=== PATIENT | female | born 1960 | race Caucasian/White ===

== ENCOUNTER 2018-07-01 15:54 | Emergency (ER) | payer OTHER ==
[~2018-07-01] VITALS: Ht 162.6 cm; Wt 68.0 kg
[2018-07-01] MEDS ORDERED: VENLAFAXINE HCL75 M1 PO (16:07)
[2018-07-01] MEDS ORDERED: SUMATRIPTAN SUC50 MG PO (16:07)
[2018-07-01] MEDS ORDERED: AMITRIPTYLINE H25 MG PO (16:08)
[2018-07-01] MEDS ORDERED: NORCO 5-325 TA1 EACH PO (16:56)
== END 2018-07-01 17:23 | disposition home or self-care (01) ==
LOC: ED 15:54
PROC: 2W3CX1Z Immobilization of Right Lower Arm using Splint (ICD-10-PCS; principal; 2018-07-01)
DX: S52.614A Nondisplaced fracture of right ulna styloid process, initial encounter for closed fracture (principal); S52.501A Unspecified fracture of the lower end of right radius, initial encounter for closed fracture; V80.010A Animal-rider injured by fall from or being thrown from horse in noncollision accident, initial encounter; Z79.899 Other long term (current) drug therapy
CPT/HCPCS: 29125; 73110; 99283-25

== ENCOUNTER 2021-01-30 06:30 | Day surgery (SDC) | payer OTHER ==
[~2021-01-30] VITALS: Ht 162.6 cm; Wt 63.5 kg
[~2021-01-30 06:30] MED LIST: AMITRIPTYLINE H25 MG PO; MULTI-VITAMIN1 EACH PO; NAPROXEN500 MG PO; NORCO 5-325 TA1 EACH PO; PETADOLEX50 MG PO; SUMATRIPTAN SUC50 MG PO; VENLAFAXINE HCL75 M1 PO; VITAMIN D3 COM1 EACH PO
--- NOTE | 2021-01-30 08:17 | NUR ---
01/30/21 0817 Lotus Maya 0815-PT TO PACU IN LL POSITION. EYES OPEN. PT IS DROWSY BUT ASKING QUESTIONS ABOUT PROCEDURE APPROPRIATELY. BREATHING EASY AND UNLABORED. SPO2 >95% ON 2 L O2 VIA NC. PT DENIES PAIN AND NAUSEA. PT ENCOURAGED TO PASS GAS AND ORIENTED TO PLAN OF CARE.
--- NOTE | 2021-02-01 11:41 | OR ---
[facility] [address], [place] [address] Signed DATE OF OPERATION: 01/30/2021 SURGEON: Tammy Zarco MD PREOPERATIVE DIAGNOSES: 1. Surveillance. 2. Family history of colon cancer, paternal uncle. POSTOPERATIVE DIAGNOSES: Normal colon to cecum. PROCEDURE: Total colonoscopy to cecum. ANESTHESIA: Intravenous sedation, fentanyl 100 mcg, Versed 6 mg. INDICATION: This 60-year-old white woman is a patient of Dr. Parker and known to me from the past having undergone colonoscopy in 2010, which was normal. She has no symptoms of bleeding, diarrhea or constipation, but does have family history of colon cancer in a paternal great uncle. She is admitted at this time to undergo colonoscopy for surveillance. She understands the risks of bleeding, infection, and perforation. FINDINGS: The prep was adequate. Complete colonoscopy was undertaken to the cecum. The ileocecal valve and appendiceal orifice were normal. There was no evidence of polyps, diverticular formation, colitis, or cancer. DESCRIPTION OF PROCEDURE: The patient was brought to the endoscopy suite and placed in lateral decubitus position, given intravenous sedation to the point of slurred speech and nystagmus. Digital rectal examination was normal. An Olympus video colonoscope was passed in the rectum and manipulated throughout the colon ultimately intubating the cecum itself. The ileocecal valve and appendiceal orifice were normal and the scope was withdrawn from that point and examination throughout showed no sign of abnormality specifically no polyps, diverticular formation, colitis, or cancer. Retroflex view was normal as well. The scope was removed. The patient was taken to the recovery room in good condition. Electronically Signed By: TAMMY ZARCO MD 02/01/21 1141 PATIENT NAME: SHERI VILLEGAS OPERATIVE REPORT DATE OF : 60 REPORT #: [id number] PHYSICIAN: TAMMY ZARCO MD PCP: LEEANN PARKER MD REPORT IS CONFIDENTIAL AND NOT TO BE RELEASED WITHOUT AUTHORIZATION [facility] [address] [place] [address] [place], [place] [address] Signed CONCLUDING DIAGNOSIS: Normal colon to cecum. PLAN: Recommend a repeat colonoscopy in 10 years sooner if clinically indicated. She will return to the ongoing care of Dr. Parker. Tammy Zarco MD JM/MODL /[id number] cc: Leeann Parker MD Copies: LEEANN PARKER MD ~ Electronically Signed By: TAMMY ZARCO MD 02/01/21 1141 PATIENT NAME: SHERI VILLEGAS JASMIN OPERATIVE REPORT DATE OF : 60 REPORT #: [id number] PHYSICIAN: TAMMY ZARCO MD PCP: LEEANN PARKER MD REPORT IS CONFIDENTIAL AND NOT TO BE RELEASED WITHOUT AUTHORIZATION
== END 2021-01-30 08:51 | disposition home or self-care (01) ==
LOC: DS 06:30 → OPS 06:30 → DS 06:45 → OPS 06:45
PROVIDERS: ATTEND Surgery
PROC: 0DJD8ZZ Inspection of Lower Intestinal Tract, Via Natural or Artificial Opening Endoscopic (ICD-10-PCS; principal; 2021-01-30 06:45)
DX: Z12.11 Encounter for screening for malignant neoplasm of colon (principal); Z80.0 Family history of malignant neoplasm of digestive organs; Z90.711 Acquired absence of uterus with remaining cervical stump
CPT/HCPCS: 99153; G0500; J2250; J3010; J7121

== ENCOUNTER 2021-10-31 06:00 | Day surgery (SDC) | payer OTHER ==
[~2021-10-31] VITALS: Ht 162.6 cm; Wt 63.2 kg
[~2021-10-31 06:00] MED LIST changes: +NAPROSYN500 MG PO; +VITAMIN D310 MC4 PO
[2021-10-31] MEDS ORDERED: OXYCODON-ACETA1 EAC2 PO (08:30)
[2021-10-31] MEDS ORDERED: ACETAMINOPHEN500 MG PO (08:30)
[2021-10-31] MEDS ORDERED: IBUPROFEN600 MG PO (08:30)
--- NOTE | 2021-10-31 08:50 | NUR ---
10/31/21 0850 Vero Uribe 0811 PT ARRIVED IN PACU NON RESPONSIVE TO NOXIOUS STIMULI WITH OPA IN PLACE. 0819 PT REACTIVE. OPA REMOVED. 0830 DR AT BEDSIDE. ALL QUESTIONS ANSWERED. 0835 SIPPING ON WATER WITH NO C/O'S. 0840 TO DS. REPORT GIVEN TO RN. AT BEDSIDE.
--- NOTE | 2021-10-31 08:55 | NUR ---
0840: PT RETURNS TO UNIT VIA STRETCHER FROM PACU. AWAKE AND ALERT ON ARRIVAL. HOLDS APPOPRIATE CONVERSATION. VSS, RESP EVEN AND UNLABORED. DENIES PAIN AND NAUSEA. TUNG PO INTAKE WELL. POC DISCUSSED AND PT AGREEABLE AT THIS TIME. ATTENTIVE AT THE BEDSIDE. NO NEEDS VOICED, CALL LIGHT WITHIN REACH
--- NOTE | 2021-10-31 09:58 | NUR ---
PT ALERT, ORIENTED AND SUPPORTED BY HER DHEERAJ. PT SEEMS INFORMED, ALL QUESTIONS ASKED ANSWERED. DHEERAJ WILL REMAIN FOR DC, PT REQUESTED PRAYER, WILL FOLLOW NEEDED
--- NOTE | 2021-10-31 10:06 | NUR ---
0950: PT SITS UP STRAIGHT IN STRETCHER. COMFORTABLE WITHOUT PAIN AND NAUSEA. VSS, RESP EVEN AND UNLABORED. NO CHANGE TO DRESSING FROM ARRIVAL. DANGLES AT THE BEDSIDE, TUNG WELL. DENIES DIZZINESS AND SOB. AMBULATES TO BR WITH STANDBY ASSIST FROM THIS RN. SUCCESSFUL FIRST POSTOP VOID, 200MLS. DRESSES INDEPENDENTLY AND PREPARES FOR DC 1000: SL REMOVED WITH CATH TIP INTACT AND PRESSURE APPLIED TO SITE, WNL. DC INSTRUCTIONS PROVIDED AND DISCUSSED ORDERED. PT VOICES UNDERSTANDING AND DENIES QUESTIONS AND CONCERNS AT THIS TIME. WHEELED OFF OF UNIT IN WC BY THIS RN FOR DC. TRANSFERS INTO VEHICLE INDEPENDETLY AND APPOPRIATELY. NO PHYSICAL S/S OF DISTRESS AT THIS TIME.
--- NOTE | 2021-11-01 11:40 | OR ---
[facility] [address] [place], [place] [address] Signed DATE OF OPERATION: 10/31/2021 SURGEON: Tammy Zarco MD PREOPERATIVE DIAGNOSIS: Right lateral chest wall soft tissue mass (recurrent). POSTOPERATIVE DIAGNOSIS: Right lateral chest wall soft tissue mass (recurrent), probable lipoma, 4 cm. PROCEDURE: Excision of deep subfascial right lateral chest wall soft tissue mass (4 cm). ANESTHESIA: General, LMA; Jose Batres, POST TENSIONING IRONWORKER HELPER and local 20 mL of 0.25% Marcaine with epinephrine. INDICATIONS: This 61-year-old white woman is a patient of Dr. Leeann Parker, well known to me from the past. She underwent excision of a right lateral chest wall soft tissue mass by me, which proved to be a lipoma. This healed well and there was no evidence of persistent mass. She has since developed a recurrent mass in the region of the previous excision surprisingly. It appears smooth on clinical examination and not far from the original incision site in the right lateral chest wall, inferiorly and laterally. She is here for excision of the lesion, understands the risks of bleeding, infection, recurrence, and other unforeseen complications. FINDINGS: A lipomatous mass 3-4 cm in size was noted densely adherent to the serratus anterior. Complete excision was accomplished without problem. DESCRIPTION OF PROCEDURE: The patient was brought to the operating room, given a general LMA type anesthetic and placed in supine position. The right lateral chest wall, which had previously been marked indicative of the lesion in question was undertaken with a chlorhexidine solution. The previous incision site was incised with a 15 blade. Dissection carried through the subcutaneous tissue with electrocautery. Using blunt dissection, the subcutaneous tissue was and a smooth walled lipomatous mass identified. This was from the surrounding soft tissue with blunt dissection, extended down to this radius anterior muscle and was excised with electrocautery from that. Excision of portion of fascia was undertaken with the lipomatous mass. It was completely excised Electronically Signed By: TAMMY ZARCO MD 11/01/21 1140 PATIENT NAME: SHERI VILLEGAS OPERATIVE REPORT DATE OF : 60 REPORT #: [id number] PHYSICIAN: TAMMY ZARCO MD PCP: LEEANN PARKER MD REPORT IS CONFIDENTIAL AND NOT TO BE RELEASED WITHOUT AUTHORIZATION [facility] [address] [place] [id number] Signed and passed for Pathology. Electrocautery was used for hemostasis. A 20 mL of 0.25% Marcaine with epinephrine injected locally. The wound was closed in layers with interrupted 2-0 Vicryl and running subcuticular 3-0 Vicryl for the skin. Steri-Strips were applied as was Acticoat dressing. Blood loss was minimal. Complications were none. MD MAYI Hu/ESTELA /[id number] cc: Leeann Parker MD Copies: LEEANN PARKER MD ~ Electronically Signed By: TAMMY ZARCO MD 11/01/21 1140 PATIENT NAME: SHERI VILLEGAS OPERATIVE REPORT DATE OF : 60 REPORT #: [id number] PHYSICIAN: TAMMY ZARCO MD PCP: LEEANN PARKER MD REPORT IS CONFIDENTIAL AND NOT TO BE RELEASED WITHOUT AUTHORIZATION
--- NOTE | 2021-11-02 10:06 | PATH ---
[facility] [address], [place] [address] Signed SPECIMEN(S): A RIGHT ANTEROLATERAL CHEST WALL SPECIMEN SOURCE: A. RIGHT ANTEROLATERAL CHEST WALL CLINICAL HISTORY: Right anterolateral aspect lipoma of abdominal wall. Soft tissue mass, right anterolateral chest wall. Excision of lipoma of right anterolateral abdominal wall. FINAL PATHOLOGIC DIAGNOSIS: Chest wall, right anterolateral: - Lipoma. TWK:caw:C2NR MICROSCOPIC EXAMINATION: The specimen consists of benign adipose tissue consistent with a lipoma. Atypical features are not seen. TWK GROSS DESCRIPTION: The specimen, labeled "SL, right anterolateral chest wall," is received in formalin and consists of one yellow-lynch, soft, smooth fibroadipose tissue fragment that measures 3.8 x 3.0 x 1.7 cm. Specimen is inked. Sectioning through the specimen reveals regular adipose tissue surrounded with a thin capsule. Cnc Service Technician sections are submitted in cassettes (A1-A2). JS (under the direct supervision of a pathologist) The Gross Description was prepared using a voice recognition system. The report was reviewed for accuracy; however, sound-alike word errors, addition and/or deletions may occur. If there is any question about this report, please contact Client Services. PERFORMING LABORATORY: The technical component was performed by [facility], [address] [place] [id number] (CLIA# [id number]). The professional interpretation was performed by [facility], [facility], [address] [place] [place] [address] (CLIA#: [id number]). Diagnostician: Arnulfo Hernandez MD PATIENT NAME: SHERI VILLEGAS PATHOLOGY DATE OF : 60 REPORT #: [id number] PHYSICIAN: [facility] PCP: LEEANN PARKER MD REPORT IS CONFIDENTIAL AND NOT TO BE RELEASED WITHOUT AUTHORIZATION [facility] [address] [place], [place] [address] Signed Pathologist Electronically Signed 11/02/2021 Copies: ~ PATIENT NAME: SHERI VILLEGAS PATHOLOGY DATE OF : 60 REPORT #: [id number] PHYSICIAN: [facility] PCP: LEEANN PARKER MD REPORT IS CONFIDENTIAL AND NOT TO BE RELEASED WITHOUT AUTHORIZATION
== END 2021-10-31 10:00 | disposition home or self-care (01) ==
LOC: DS 06:00
PROVIDERS: ATTEND Surgery
PROC: 0JB60ZZ Excision of Chest Subcutaneous Tissue and Fascia, Open Approach (ICD-10-PCS; principal; 2021-10-31 07:00)
DX: D17.1 Benign lipomatous neoplasm of skin and subcutaneous tissue of trunk (principal); R22.31 Localized swelling, mass and lump, right upper limb
CPT/HCPCS: J0690; J1100; J1885; J2001; J2405; J2704; J3010; J7121